=== PATIENT | female | born 2005 | race Two or more races ===

== ENCOUNTER 2025-01-03 10:17 | Emergency (ER) | payer SELFPAY ==
[2025-01-03] MEDS ORDERED: Dexamethasone 10 MG/ML VIAL ONE (11:39)
[2025-01-03] MEDS ORDERED: diphenhydrAMINE 25 MG CAP ONE (11:40)
== END 2025-01-03 13:10 | disposition home or self-care (01) ==
LOC: CSHERS 10:17
DX: T78.40XA Allergy, unspecified, initial encounter (principal); L50.9 Urticaria, unspecified; F17.290 Nicotine dependence, other tobacco product, uncomplicated; X58.XXXA Exposure to other specified factors, initial encounter
CPT/HCPCS: 96372; 99282; J1100